=== PATIENT | female | born 1990 | race Two or more races ===

== ENCOUNTER 2021-09-20 05:51 | Inpatient (IN) | payer OTHER ==
[~2021-09-20] VITALS: Ht 160 cm; Wt 93.0 kg
[2021-09-20] MEDS ORDERED: PRENATAL CAPLE1 EAC1 PO (07:56)
== END 2021-09-22 11:27 | disposition home or self-care (01) | DRG 807 ==
LOC: LDR 05:51 → OB/GYN 05:51 → LDR 06:21 → OB/GYN 15:23
PROVIDERS: ADMIT Obstetrics & Gynecology; ATTEND Obstetrics & Gynecology
PROC: 10E0XZZ Delivery of Products of Conception, External Approach (ICD-10-PCS; principal; 2021-09-20)
PROC: 0KQM0ZZ Repair Perineum Muscle, Open Approach (ICD-10-PCS; 2021-09-20)
PROC: 0UQMXZZ Repair Vulva, External Approach (ICD-10-PCS; 2021-09-20)
PROC: 4A1HXFZ Monitoring of Products of Conception, Cardiac Rhythm, External Approach (ICD-10-PCS; 2021-09-20)
DX: O70.1 Second degree perineal laceration during delivery (principal); Z37.0 Single live birth; O71.82 Other specified trauma to perineum and vulva; Z3A.39 39 weeks gestation of pregnancy